=== PATIENT | female | born 1935 | race Caucasian/White ===

== ENCOUNTER → 2017-02-16 | Outpatient (CLI) | payer MEDICARE, BC ==
[2017-02-16 08:18] LABS: Anion Gap 13 mmol/L; Blood Urea Nitrogen 10 mg/dL (7-17); Calcium 9.6 mg/dL (8.4-10.2); Carbon Dioxide 22 mmol/L (22-30); Chloride 106 mmol/L (98-107); Cholesterol 218 mg/dL (<200); Glucose 100 mg/dL (74-99); HDL Cholesterol 71 mg/dL (40-60); Non-African American GFR(MDRD) >60 (>60 ml/min/1.73 sqM); Potassium 4.2 mmol/L (3.5-5.1); Sodium 141 mmol/L (137-145); Triglycerides 140 mg/dL (<150)
[2017-02-16 12:34] LABS: Hemoglobin A1C 4.6 % (4.2-6.1)
== END | disposition home or self-care (01) ==
LOC: LABWHC1 07:17
PROVIDERS: ATTEND Internal Medicine
DX: E11.9 Type 2 diabetes mellitus without complications (principal); E78.5 Hyperlipidemia, unspecified
CPT/HCPCS: 36415; 80048; 80061; 82043; 83036

== ENCOUNTER → 2017-11-24 | Outpatient (CLI) | payer MEDICARE, BC ==
[2017-11-24 08:08] LABS: Appearance,Urine Cloudy (Clear); Bacteria,Urine Many /hpf; Bilirubin,Urine Negative (Negative); Blood,Urine Negative (Negative); Color,Urine Yellow; Glucose,Urine (UA) Negative (Negative); Ketones,Urine Negative (Negative); Leukocyte Esterase,Urine Large (Negative); Mucus,Urine Rare /hpf; Nitrite,Urine Negative (Negative); PH, Urine 5.5 (5.0-8.0); Protein,Urine Negative (Negative); RBC,Urine 2 /hpf (0-5); Specific Gravity,Urine 1.011 (1.001-1.035); Squamous Epithelial Cell,Urine 4 /hpf (0-4); Urobilinogen,Urine <2.0 mg/dL (<2.0); WBC,Urine 112 /hpf (0-5)
[2017-11-24 08:33] LABS: Anion Gap 13 mmol/L; Blood Urea Nitrogen 11 mg/dL (7-17); Calcium 9.4 mg/dL (8.4-10.2); Carbon Dioxide 25 mmol/L (22-30); Chloride 104 mmol/L (98-107); Cholesterol 151 mg/dL (<200); Glucose 90 mg/dL (74-99); HDL Cholesterol 56 mg/dL (40-60); LDL Cholesterol,Calculated 67 mg/dL (0-99); Potassium 4.4 mmol/L (3.5-5.1); Sodium 142 mmol/L (137-145); Triglycerides 139 mg/dL (<150)
[2017-11-24 12:23] LABS: Hemoglobin A1C 4.5 % (4.0-6.0)
== END | disposition home or self-care (01) ==
LOC: LABWHC1 07:17
PROVIDERS: ATTEND Internal Medicine
DX: E78.5 Hyperlipidemia, unspecified (principal); E11.9 Type 2 diabetes mellitus without complications
CPT/HCPCS: 36415; 80048; 80061; 81001; 83036

== ENCOUNTER → 2018-07-20 | Outpatient (CLI) | payer MEDICARE, BC ==
[2018-07-20 16:47] LABS: HCT 37.4 % (34.0-46.0); MCH 28.8 pg (25.0-35.0); MCHC 32.1 g/dL (31.0-37.0); MCV 89.9 fL (80.0-100.0); Mean Platelet Volume 6.7; Platelet Count 213 k/uL (150-450); RBC 4.16 m/uL (3.80-5.40); RDW 14.4 % (11.5-15.5)
[2018-07-20 18:54] LABS: Erythrocyte Sedimentation Rate 44 mm/hr (0-20)
[2018-07-21 03:29] LABS: Rheumatoid Factor 27 IU/mL (0-15)
[2018-07-21 03:47] LABS: Albumin 4.5 g/dL (3.80-4.90); Albumin/Globulin Ratio 1.73 (1.20-2.10); Anion Gap 10.2 mmol/L (4.00-12.00); Calcium 9.9 mg/dL (8.7-10.3); Carbon Dioxide 23.8 mmol/L (21.6-31.8); Globulin 2.6 g/dL (2.1-3.7); Potassium 4.8 mmol/L (3.5-5.5); Total Bilirubin 1.1 mg/dL (0.3-1.2); Total Protein 7.1 g/dL (6.2-8.2); Uric Acid 4.4 mg/dL (2.9-7.7)
[2018-07-21 04:15] LABS: Cyclic Citrullinated Pep IgG NEGATIVE (NEGATIVE)
[2018-07-21 11:36] LABS: C Reactive Protein 1.8
== END | disposition home or self-care (01) ==
LOC: LABWHC1 15:59
PROVIDERS: ATTEND Internal Medicine
DX: E78.5 Hyperlipidemia, unspecified (principal); E11.9 Type 2 diabetes mellitus without complications; M25.541 Pain in joints of right hand
CPT/HCPCS: 36415; 80053; 83036; 84550; 85027; 85652; 86140; 86200; 86431

== ENCOUNTER → 2018-09-22 | Outpatient (CLI) | payer MEDICARE, BC ==
--- NOTE | 2018-09-22 08:20 | XR ---
EXAMINATION TYPE: XR wrist complete BILATERAL, XR hand complete bilateral DATE OF EXAM: 09/22/2018 CLINICAL HISTORY: Bilateral hand and wrist pain. TECHNIQUE: Frontal, lateral and oblique images of the bilateral hands and wrists are obtained. COMPARISON: None FINDINGS: There is no acute fracture/dislocation evident in either wrist. There is radiocarpal joint space loss seen bilaterally. Demineralization is present which is noted to lower radiographic sensit ivity. There is symmetric moderate to advanced narrowing narrowing at base of first metacarpal. Overl sreedhar vascular calcification is present bilaterally. Images of bilateral hands show mild to moderate narrowing throughout the bilateral phalanges involvin g PIP and DIP joints. There is relative sparing of the MCP joints. Mild/moderate diffuse soft tissue swelling is present. Demineralization is noted. IMPRESSION: As above.
== END | disposition home or self-care (01) ==
LOC: RADXRMAIN 07:14
PROVIDERS: ATTEND Physician Assistant Medical
DX: M25.842 Other specified joint disorders, left hand (principal); M25.841 Other specified joint disorders, right hand; M79.89 Other specified soft tissue disorders; M13.0 Polyarthritis, unspecified

== ENCOUNTER 2022-04-02 13:53 | Observation (INO) | payer MEDICARE, BC ==
[2022-04-02] MEDS ORDERED: DILTIAZEM DRIP BOLUS FROM BAG 1 MG SOLN IV ONE (14:39)
[2022-04-02] MEDS ORDERED: DILTIAZEM 125 MG in SODIUM CHLORIDE 0.9% 100 ML IV SCH ×3 (14:45→23:00)
[2022-04-02 14:57] LABS: Basophils % (A) 0 %; Eosinophils % (A) 1 %; HCT 35.5 % (34.0-46.0); HGB 11.7 gm/dL (11.4-16.0); Lymphocytes # (A) 0.9 k/uL (1.0-4.8); Lymphocytes % (A) 14 %; Monocytes # (A) 0.4 k/uL (0-1.0); Monocytes % (A) 5 %; Neutrophils % (A) 78 %; Platelet Count 175 k/uL (150-450); RDW 13.9 % (11.5-15.5); WBC 6.4 k/uL (3.8-10.6)
[2022-04-02 15:08] LABS: Partial Thromboplastin Time 26.5 sec (22.0-30.0); Prothrombin Time 10.7 sec (9.0-12.0)
--- NOTE | 2022-04-02 15:13 | XR ---
EXAMINATION TYPE: XR chest 2V DATE OF EXAM: 04/02/2022 COMPARISON: NONE HISTORY: Chest pain. TECHNIQUE: Frontal and lateral views of the chest are obtained. FINDINGS: There is mild chronic painful change without suspicious focal air space opacity, pleural e ffusion, or pneumothorax seen. The cardiac silhouette size is enlarged with atherosclerotic thoracic aorta. The osseous structures are demineralized. Cholecystectomy clips are noted on lateral view. IMPRESSION: Chronic changes and cardiomegaly without acute pulmonary process.
[2022-04-02 15:27] LABS: ALT 12 U/L (4-34); African American GFR (CKD) >90 (>60 ml/min/1.73 sqM); Albumin 4.3 g/dL (3.5-5.0); Anion Gap 8 mmol/L; Blood Urea Nitrogen 10 mg/dL (7-17); Calcium 8.9 mg/dL (8.4-10.2); Carbon Dioxide 24 mmol/L (22-30); Chloride 103 mmol/L (98-107); Glucose 102 mg/dL (74-99); Non-African American GFR(CKD) 81 (>60 ml/min/1.73 sqM); Sodium 135 mmol/L (137-145); Total Bilirubin 1.5 mg/dL (0.2-1.3); Total Protein 7.8 g/dL (6.3-8.2)
[2022-04-02 15:37] LABS: AST 27 U/L (14-36); Alkaline Phosphatase 72 U/L (38-126); Potassium 4.6 mmol/L (3.5-5.1)
[2022-04-02] MEDS ORDERED: NITROGLYCERIN SL TABS 0.4 MG TAB SUBLINGUAL PRN (15:57)
[2022-04-02] MEDS ORDERED: HEPARIN SODIUM 1,000 UN/ML (10ML VL) IV ONE (15:57)
--- NOTE | 2022-04-02 15:57 | ED ---
General Adult HPI - General Chief complaint: Recheck/Abnormal Lab/Rx Stated complaint: Abnormal EKG Time Seen by Provider: 04/02/22 14:15 Source: patient, family, RN notes reviewed Mode of arrival: ambulatory Limitations: no limitations - History of Present Illness Initial comments: 86-year-old female presents emergency Department from PCPs office with family for new onset atrial fibrillation. Patient went for routine checkup found to be in A. fib RVR. Patient has no history of atrial fibrillation. Patient has no specific complaints. She denies any chest pain shortness breath palpitations or nausea vomiting diarrhea constipation. Patient is very hard of hearing. Patient family members state that she is at her normal baseline. - Related Data Home Medications Medication Instructions Recorded Confirmed Aspirin 81 mg PO DAILY 04/21/14 04/21/14 Fish Oil/Dha/Epa [Fish Oil 1,200 1 each PO 04/21/14 04/21/14 mg Fish Oil] Gabapentin [Neurontin] 600 mg PO DAILY 04/21/14 04/21/14 Lovastatin [Mevacor] 20 mg PO HS 04/21/14 04/21/14 Multivitamins, Thera [Multivitamin] 1 each PO 04/21/14 04/21/14 Spironolactone [Aldactone] 25 mg PO DAILY 04/21/14 04/21/14 glipiZIDE [Glucotrol] 5 mg PO AC-BRKFST 04/21/14 04/21/14 Previous Rx's Medication Instructions Recorded Clopidogrel [Plavix] 75 mg PO DAILY #30 tab 04/24/14 amLODIPine BESYLATE [Norvasc] 5 mg PO DAILY #30 tab 04/24/14 Allergies Allergy/AdvReac Type Severity Reaction Status Date / Time codeine AdvReac Nausea & Verified 04/02/22 14:08 Vomiting Review of Systems ROS Statement: Those systems with pertinent positive or pertinent negative responses have been documented in the HPI. ROS Other: All systems not noted in ROS Statement are negative. 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 History of Any Multi-Drug Resistant Organisms: None Reported Past Surgical History: Cholecystectomy, Hysterectomy Additional Past Surgical History / Comment(s): cataract sx,colonoscopy, lumpectomy Past Anesthesia/Blood Transfusion Reactions: No Reported Reaction Past Psychological History: No Psychological Hx Reported Smoking Status: Never smoker Past Alcohol Use History: None Reported Past Drug Use History: None Reported General Exam Limitations: no limitations General appearance: alert, in no apparent distress Head exam: Present: atraumatic, normocephalic, normal inspection Eye exam: Present: normal appearance, PERRL, EOMI. Absent: scleral icterus, conjunctival injection, periorbital swelling ENT exam: Present: normal exam, normal oropharynx, mucous membranes moist Neck exam: Present: normal inspection, full ROM. Absent: tenderness, meningismus, lymphadenopathy Respiratory exam: Present: normal lung sounds bilaterally. Absent: respiratory distress, wheezes, rales, rhonchi, stridor Cardiovascular Exam: Present: tachycardia, irregular rhythm, normal heart sounds. Absent: regular rate, normal rhythm, systolic murmur, diastolic murmur, rubs, gallop, clicks GI/Abdominal exam: Present: soft, normal bowel sounds. Absent: distended, tenderness, guarding, rebound, rigid Course Vital Signs 04/02/22 04/02/22 14:06 15:21 Temperature 98.3 F Pulse Rate 108 H 94 Respiratory 18 16 Rate Blood Pressure 167/78 O2 Sat by Pulse 99 96 Oximetry EKG Findings - EKG Comments: EKG Findings:: EKG atrial fibrillation with a rate of 101 QRS 89 QT/QTC 323/381 Medical Decision Making - Medical Decision Making 86-year-old female presented for new-onset A. fib fibrillation. Patient is an R VR. Patient was started on Cardizem. Patient did have. Labs with no specific findings. Patient will be admitted for echocardiogram, cardiology evaluation. - Lab Data Result diagrams: 04/02/22 14:48 04/02/22 14:48 Lab Results 04/02/22 04/02/22 04/02/22 Range/Units 14:48 14:48 14:48 WBC 6.4 (3.8-10.6) k/uL RBC 3.90 (3.80-5.40) m/uL Hgb 11.7 (11.4-16.0) gm/dL Hct 35.5 (34.0-46.0) % MCV 91.0 (80.0-100.0) fL MCH 30.0 (25.0-35.0) pg MCHC 33.0 (31.0-37.0) g/dL RDW 13.9 (11.5-15.5) % Plt Count 175 (150-450) k/uL MPV 7.0 Neutrophils % 78 % Lymphocytes % 14 % Monocytes % 5 % Eosinophils % 1 % Basophils % 0 % Neutrophils # 5.0 (1.3-7.7) k/uL Lymphocytes # 0.9 L (1.0-4.8) k/uL Monocytes # 0.4 (0-1.0) k/uL Eosinophils # 0.0 (0-0.7) k/uL Basophils # 0.0 (0-0.2) k/uL PT 10.7 (9.0-12.0) sec INR 1.0 (<1.2) APTT 26.5 (22.0-30.0) sec Sodium 135 L (137-145) mmol/L Potassium 4.6 (3.5-5.1) mmol/L Chloride 103 (98-107) mmol/L Carbon Dioxide 24 (22-30) mmol/L Anion Gap 8 mmol/L BUN 10 (7-17) mg/dL Creatinine 0.66 (0.52-1.04) mg/dL Est GFR (CKD-EPI)AfAm >90 (>60 ml/min/1.73 sqM) Est GFR (CKD-EPI)NonAf 81 (>60 ml/min/1.73 sqM) Glucose 102 H (74-99) mg/dL Calcium 8.9 (8.4-10.2) mg/dL Magnesium 2.0 (1.6-2.3) mg/dL Total Bilirubin 1.5 H (0.2-1.3) mg/dL AST 27 (14-36) U/L ALT 12 (4-34) U/L Alkaline Phosphatase 72 (38-126) U/L Troponin I (0.000-0.034) ng/mL NT-Pro-B Natriuret Pep pg/mL Total Protein 7.8 (6.3-8.2) g/dL Albumin 4.3 (3.5-5.0) g/dL 04/02/22 04/02/22 Range/Units 14:48 14:48 WBC (3.8-10.6) k/uL RBC (3.80-5.40) m/uL Hgb (11.4-16.0) gm/dL Hct (34.0-46.0) % MCV (80.0-100.0) fL MCH (25.0-35.0) pg MCHC (31.0-37.0) g/dL RDW (11.5-15.5) % Plt Count (150-450) k/uL MPV Neutrophils % % Lymphocytes % % Monocytes % % Eosinophils % % Basophils % % Neutrophils # (1.3-7.7) k/uL Lymphocytes # (1.0-4.8) k/uL Monocytes # (0-1.0) k/uL Eosinophils # (0-0.7) k/uL Basophils # (0-0.2) k/uL PT (9.0-12.0) sec INR (<1.2) APTT (22.0-30.0) sec Sodium (137-145) mmol/L Potassium (3.5-5.1) mmol/L Chloride (98-107) mmol/L Carbon Dioxide (22-30) mmol/L Anion Gap mmol/L BUN (7-17) mg/dL Creatinine (0.52-1.04) mg/dL Est GFR (CKD-EPI)AfAm (>60 ml/min/1.73 sqM) Est GFR (CKD-EPI)NonAf (>60 ml/min/1.73 sqM) Glucose (74-99) mg/dL Calcium (8.4-10.2) mg/dL Magnesium (1.6-2.3) mg/dL Total Bilirubin (0.2-1.3) mg/dL AST (14-36) U/L ALT (4-34) U/L Alkaline Phosphatase (38-126) U/L Troponin I <0.012 (0.000-0.034) ng/mL NT-Pro-B Natriuret Pep 1150 pg/mL Total Protein (6.3-8.2) g/dL Albumin (3.5-5.0) g/dL Critical Care Time Critical Care Time: Yes Total Critical Care Time: 35 Disposition Clinical Impression: Atrial fibrillation with RVR, New onset atrial fibrillation Disposition: ADMITTED IP TO THIS [facility] Condition: Fair Referrals: Nirali Romero MD [Primary Care Provider] - 1-2 days
[2022-04-02] MEDS ORDERED: HEPARIN SOD,PORK IN 0.45% NACL 25,000 UNIT in 0.45% NACL 1 250ML.BAG IV SCH (16:15)
[2022-04-02] MEDS ORDERED: MELATONIN 3 MG TABLET PO PRN (16:56)
[2022-04-02] MEDS ORDERED: ONDANSETRON 4 MG/2 ML VIAL IVP PRN (16:56)
[2022-04-02] MEDS ORDERED: NALOXONE 0.4 MG/ML 1 ML VIAL IVP PRN (17:00)
[2022-04-02] MEDS ORDERED: bisacodyL 5 MG TABLET.DR PO PRN (17:07)
[2022-04-02] MEDS ORDERED: ACETAMINOPHEN TAB 325 MG TAB PO PRN (17:07)
--- NOTE | 2022-04-02 17:07 | P.HPIM ---
History of Present Illness H&P Date: 04/02/22 Patient is an 86 yo CF with a Prior CVA, HTN, and DM 2 with peripheral neuropathy who was sent in by Dr. Nick shabazz being found in A fib with RVR at the office. On arrival to the ER she was foudn to have HR between 110-120. She was given cardizme 5 mg IVP followed by a cardizem gtt and achieve adaquate rate control. Labatoray analysis was unremarkable ither than bili of 1.5, Chest x-ray showed no acute process. She was placed in Observation for HR control. Patient seen and examined at bedside in the emergency department with family present. She was at her routine yearly evaluation with her primary care physician when he noticed she was in A. fib with RVR. Patient denies any palpitations, chest pain, shortness of breath, lightheadedness, dizziness. She does report that she has been more tired than normal. She denies any difficulty with exertion. She is independent and does most of her ADLs, her daughters do help her with thorough cleaning needed on the floor but she is independent other than this. She did have one fall back in November and hast used a walker since that time. Pertinent positives and negatives as discussed in HPI, a complete review of systems was performed and all other systems are negative. Vital signs reviewed General: nontoxic, no distress, appears at stated age Derm: warm, dry Head: atraumatic, normocephalic, symmetric Eyes: EOMI, no lid lag, anicteric sclera, pupils equal round reactive to light ENT: Nose and ears atraumatic, no thrush, no pharyngeal erythema Neck: No thyromegaly, no cervical lymphadenopathy, trachea midline, supple Mouth: no lip lesion, mucus membranes moist Cardiovascular: S1S2 irreg, positive posterior tibial pulse bilateral, trace edema right ankle, capillary refill less than 2 seconds Lungs: clear to auscultation bilateral, no rhonchi, no rales, no wheeze, no accessory muscle use Abdominal: soft, nontender to palpation, no guarding, no appreciable organomegaly, normal bowel sounds Ext: no gross muscle atrophy, muscle strength muscle strength 5 out of 5 in all 4 extremities, no contractures Neuro: CN II-XII grossly intact, light touch intact all 4 extremities, finger to nose within normal limits, Psych: Alert, oriented, appropriate affect Assessment/Plan: Atrial fibrilliation with rapid ventricular response, newly discovered Hx Moderate Pulm HTN - Cardizem - tele - transition off Cardizem - check echo - consult cardio - check TSH DM 2 wiht neuropathy - hold oral medications -SSI - follow BS HTN - Hold norvasc - follow BP Hx CVA - ASA, Plavix HX vasculitis The patient is admitted with an anticipated less than 2 midnight stay for evalua tion of Atrial fibrilliation with RVR Surrogate decision-maker: DaughterKenan Laguna CODE STATUS: DNR, okay wih elective cardioversion if needed DVT prophylaxis: on heparin gtt Discussed with: Pt, ED provider, daugther Anticipated discharge date: in AM Anticipated discharge place: home A total of 60 minutes was spent on the care of this complex patient more than 50% of the time was spent in counseling and care coordination. 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, neuropathy History of Any Multi-Drug Resistant Organisms: None Reported Past Surgical History: Cholecystectomy, Hysterectomy Additional Past Surgical History / Comment(s): cataract sx,colonoscopy, lumpectomy Past Anesthesia/Blood Transfusion Reactions: No Reported Reaction Past Psychological History: No Psychological Hx Reported Smoking Status: Never smoker Past Alcohol Use History: None Reported Past Drug Use History: None Reported - Past Family History Father Family Medical History: Cancer Medications and Allergies Home Medications Medication Instructions Recorded Confirmed Type Lovastatin [Mevacor] 20 mg PO DAILY 04/21/14 04/02/22 History Spironolactone [Aldactone] 25 mg PO Q48H 04/21/14 04/02/22 History Clopidogrel [Plavix] 75 mg PO DAILY #30 tab 04/24/14 04/02/22 Rx Gabapentin [Neurontin] 600 mg PO BID 04/02/22 04/02/22 History amLODIPine BESYLATE/BENAZEPRIL 1 cap PO DAILY 04/02/22 04/02/22 History [Lotrel 2.5-10 MG] metFORMIN HCL 500 mg PO DAILY 04/02/22 04/02/22 History Allergies Allergy/AdvReac Type Severity Reaction Status Date / Time codeine AdvReac Nausea & Verified 04/02/22 16:33 Vomiting Physical Exam Osteopathic Statement: *. No significant issues noted on an osteopathic structural exam other than those noted in the History and Physical/Consult. Vitals: Vital Signs Temp Pulse Resp BP Pulse Ox 04/02/22 16:25 96 16 143/66 99 04/02/22 15:21 94 16 96 04/02/22 14:06 98.3 F 108 H 18 167/78 99 Intake and Output 04/02/22 04/02/22 04/02/22 06:59 14:59 22:59 Other: Weight 58.06 kg Results CBC & Chem 7: 04/02/22 14:48 04/02/22 14:48 Labs: Abnormal Lab Results - Last 24 Hours (Table) 04/02/22 04/02/22 Range/Units 14:48 14:48 Lymphocytes # 0.9 L (1.0-4.8) k/uL Sodium 135 L (137-145) mmol/L Glucose 102 H (74-99) mg/dL Total Bilirubin 1.5 H (0.2-1.3) mg/dL
[2022-04-02 20:26] LABS: Glucose,Whole Blood 96 mg/dL (70-110)
[2022-04-02] MEDS: GABAPENTIN 300 MG CAP PO SCH (22:52)
[2022-04-03 05:42] VITALS: RESP 18
[2022-04-03 05:55] LABS: Glucose,Whole Blood 89 mg/dL (70-110)
[2022-04-03] MEDS ORDERED: METOPROLOL TARTRATE 25 MG TAB PO SCH (09:00)
[2022-04-03] MEDS: GABAPENTIN 300 MG CAP PO SCH (10:24)
[2022-04-03] MEDS ORDERED: CLOPIDOGREL 75 MG TAB PO SCH (10:45)
[2022-04-03] MEDS ORDERED: ATORVASTATIN 10 MG TAB PO SCH (10:45)
[2022-04-03 11:41] LABS: Glucose,Whole Blood 117 mg/dL (70-110)
--- NOTE | 2022-04-03 12:11 | P.CRDCN ---
History of Present Illness History of present illness: HISTORY OF PRESENTING ILLNESS This is a pleasant 86-year-old female past medical history significant for CVA around 10 years ago per family, hypertension, dyslipidemia, type 2 diabetes. 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 We've been asked to see in consultation for new onset atrial fibrillation. Patient presents for her PCP office Dr. Romero yesterday for regular 6 month wellness visit. She had an EKG performed and there was concern for Afib and patient was sent to the ER. She did not have any complaints. Denies any symptoms of chest pain, shortness of breath, lightheadedness, dizziness, palpitations, syncope or near syncope. She denies any nausea, vomiting, abdominal pain, fever, cough, chills. EKG in the office faxed over and reviewed patient in sinus tachycardia, with PACs. No atrial fibrillation noted. EKGs performed here with same findings. Telemetry reviewed as well and patient in sinus mechanism HR 80-90s, PACs and occcasional PVC noted. No atrial fibrillation. Patient does not have a history of atrial fibrillation, CAD, [place], or heart failure. She is a non-smoker. DIAGNOSTICS Chest xray no acute cardiopulmonary process Laboratory reviewed, CBC unremarkable, troponin negative 3, proBNP 1150, TSH within normal limits, sodium 135, potassium 4.6, BUN 10, serum principal 0.6, magnesium 2.0 Current home cardiac medications include amlodipine/benazepril 2. 510 milligrams daily, spironolactone 25 mg Q48hr, lovastatin 20 mg daily, Plavix 75 mg daily REVIEW OF SYSTEMS At the time of my exam: CONSTITUTIONAL: Denies fever or chills. CARDIOVASCULAR: Denies chest pain, shortness of breath, orthopnea, PND or palpitations. RESPIRATORY: Denies cough. GASTROINTESTINAL: Denies abdominal pain, diarrhea, constipation, nausea or vomiting. MUSCULOSKELETAL: Denies myalgias. NEUROLOGIC: Denies numbness, tingling, headacbe or weakness. ENDOCRINE: Denies fatigue, weight change, polydipsia or polyurina. GENITOURINARY: Denies burning, hematuria or urgency with micturation. HEMATOLOGIC: Denies history of anemia or bleeding. PHYSICAL EXAMINATION Blood pressure 117/60, heart rate 80, afebrile, saturations 95% room air CONSTITUTIONAL: No apparent distress. HEENT: Head is normocephalic. Pupils are equal, round. Sclerae anicteric. Mucous membranes of the mouth are moist. No JVD. No carotid bruit. CHEST EXAMINATION: Lungs are clear to auscultation. No chest wall tenderness is noted on palpation or with deep breathing. HEART EXAMINATION: Regular rate and rhythm. S1, S2 heard. Systolic murmur heart at the base ABDOMEN: Soft, nontender. Positive bowel sounds. EXTREMITIES: 2+ peripheral pulses, no lower extremity edema and no calf tenderness. NEUROLOGIC EXAMINATION: Patient is awake, alert and oriented x3. ASSESSMENT Sinus rhythm with premature atrial complexes, atrial fibrillation has been ruled out CVA around 10 years ago per family Hypertension Dyslipidemia Type 2 diabetes. PLAN Stop Heparin drip 2D echocardiogram ordered, preliminary read with EF 50-55% with mild aortic stenosis. From a cardiology perspective, patient is stable, no further changes at this time. Continue home cardiac medications Nurse practitioner note has been reviewed by physician. Signing provider agrees with the documented findings, assessment, and plan of care. 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, neuropathy History of Any Multi-Drug Resistant Organisms: None Reported Past Surgical History: Cholecystectomy, Hysterectomy Additional Past Surgical History / Comment(s): cataract sx,colonoscopy, lumpectomy Past Anesthesia/Blood Transfusion Reactions: No Reported Reaction Past Psychological History: No Psychological Hx Reported Smoking Status: Never smoker Past Alcohol Use History: None Reported Past Drug Use History: None Reported - Past Family History Father Family Medical History: Cancer Medications and Allergies Home Medications Medication Instructions Recorded Confirmed Type Lovastatin [Mevacor] 20 mg PO DAILY 04/21/14 04/02/22 History Spironolactone [Aldactone] 25 mg PO Q48H 04/21/14 04/02/22 History Clopidogrel [Plavix] 75 mg PO DAILY #30 tab 04/24/14 04/02/22 Rx Gabapentin [Neurontin] 600 mg PO BID 04/02/22 04/02/22 History amLODIPine BESYLATE/BENAZEPRIL 1 cap PO DAILY 04/02/22 04/02/22 History [Lotrel 2.5-10 MG] metFORMIN HCL 500 mg PO DAILY 04/02/22 04/02/22 History Allergies Allergy/AdvReac Type Severity Reaction Status Date / Time codeine AdvReac Nausea & Verified 04/02/22 16:33 Vomiting Physical Exam Vitals: Vital Signs Temp Pulse Pulse Resp BP BP Pulse Ox 04/03/22 03:55 97.8 F 90 18 107/58 95 04/02/22 23:05 95 17 129/72 97 04/02/22 22:00 138/72 04/02/22 19:48 98.3 F 102 H 18 143/83 98 04/02/22 18:32 82 16 145/92 99 04/02/22 16:25 96 16 143/66 99 04/02/22 15:21 94 16 96 04/02/22 14:06 98.3 F 108 H 18 167/78 99 Intake and Output 04/02/22 04/03/22 04/03/22 22:59 06:59 14:59 Intake Total 46.911 Balance 46.911 Intake: Intake, IV Titration 46.911 Amount Heparin Sod,Pork in 0.45% 46.911 NaCl 25,000 unit In 0.45 % NaCl 1 250ml.bag @ 12 UNITS/KG/HR 6.967 mls/hr IV .Q24H [facility] Rx#: [id number] Other: Voiding Method Toilet Toilet # Voids 1 Weight 58.06 kg Results 04/02/22 14:48 04/02/22 14:48 Cardiac Enzymes 04/02/22 04/02/22 04/02/22 Range/Units 14:48 14:48 17:27 AST 27 (14-36) U/L Troponin I <0.012 <0.012 (0.000-0.034) ng/mL 04/02/22 Range/Units 20:10 AST (14-36) U/L Troponin I <0.012 (0.000-0.034) ng/mL Coagulation 04/02/22 04/02/22 04/03/22 Range/Units 14:48 22:04 07:11 PT 10.7 (9.0-12.0) sec APTT 26.5 39.4 H 48.3 H (22.0-30.0) sec CBC 04/02/22 Range/Units 14:48 WBC 6.4 (3.8-10.6) k/uL RBC 3.90 (3.80-5.40) m/uL Hgb 11.7 (11.4-16.0) gm/dL Hct 35.5 (34.0-46.0) % Plt Count 175 (150-450) k/uL Comprehensive Metabolic Panel 04/02/22 Range/Units 14:48 Sodium 135 L (137-145) mmol/L Potassium 4.6 (3.5-5.1) mmol/L Chloride 103 (98-107) mmol/L Carbon Dioxide 24 (22-30) mmol/L BUN 10 (7-17) mg/dL Creatinine 0.66 (0.52-1.04) mg/dL Glucose 102 H (74-99) mg/dL Calcium 8.9 (8.4-10.2) mg/dL AST 27 (14-36) U/L ALT 12 (4-34) U/L Alkaline Phosphatase 72 (38-126) U/L Total Protein 7.8 (6.3-8.2) g/dL Albumin 4.3 (3.5-5.0) g/dL Current Medications Generic Name Dose Route Start Last Admin Trade Name Freq PRN Reason Stop Dose Admin Acetaminophen 650 mg 04/02/22 17:07 Acetaminophen Tab 325 Mg Tab PO Q6HR PRN Fever and/ or Pain Bisacodyl 5 mg 04/02/22 17:07 Bisacodyl 5 Mg Tablet.Dr PO DAILY PRN Constipation Gabapentin 600 mg 04/02/22 22:30 04/02/22 22:52 Gabapentin 300 Mg Cap PO 600 mg BID [facility]A Administration Heparin Sodium/Sodium Chloride 250 mls @ 6.967 mls/hr 04/02/22 16:15 04/02/22 23:00 25,000 unit/ Sodium Chloride IV 14 units/kg/hr .Q24H [facility] 8.128 mls/hr Titration Protocol 12 UNITS/KG/HR Diltiazem HCl 125 mg/ Sodium 125 mls @ 5 mls/hr 04/02/22 23:00 04/02/22 23:39 Chloride IV 5 mg/hr .Q24H [facility]A 5 mls/hr Administration 5 MG/HR Melatonin 3 mg 04/02/22 16:56 Melatonin 3 Mg Tablet PO HS PRN Insomnia Metoprolol Tartrate 25 mg 04/03/22 09:00 Metoprolol Tartrate 25 Mg Tab PO BID GENOVEVA Naloxone HCl 0.2 mg 07/06/22 17:00 Naloxone 0.4 Mg/Ml 1 Ml Vial IVP Q2M PRN Opioid Reversal Nitroglycerin 0.4 mg 04/02/22 15:57 Nitroglycerin Sl Tabs 0.4 Mg Tab SUBLINGUAL Q5M PRN Chest Pain Ondansetron HCl 4 mg 04/02/22 16:56 Ondansetron 4 Mg/2 Ml Vial IVP Q8HR PRN Nausea And Vomiting Intake and Output 04/02/22 04/03/22 04/03/22 22:59 06:59 14:59 Intake Total 46.911 Balance 46.911 Intake: Intake, IV Titration 46.911 Amount Heparin Sod,Pork in 0.45% 46.911 NaCl 25,000 unit In 0.45 % NaCl 1 250ml.bag @ 12 UNITS/KG/HR 6.967 mls/hr IV .Q24H [facility] Rx#: [id number] Other: Voiding Method Toilet Toilet # Voids 1 Weight 58.06 kg 04/02/22 14:48 04/02/22 14:48
--- NOTE | 2022-04-03 15:12 | P.DS ---
Providers Date of admission: 04/02/22 16:00 Expected date of discharge: 04/03/22 Attending physician: Coco Villegas DO Consults: 04/02/22 15:57 Consult Physician Urgent Consulting Provider: Bairon Mayes Consult Reason/Comments: new onset afib Do you want consulting provider notified?: Yes Primary care physician: Nirali Romero MD Hospital Course: Discharge Diagnosis: Sinus rhythm with PAC, A. fib ruled out Hypertension Dyslipidemia Diabetes mellitus type 2 History of prior CVA Hospital Course: Patient is an 86 yo CF with a Prior CVA, HTN, and DM 2 with peripheral neuropathy who was sent in by Dr. Romero after being found in A fib with RVR at the office. On arrival to the ER she was foudn to have HR between 110-120. She was given cardizme 5 mg IVP followed by a cardizem gtt and achieve adaquate rate control. She was started on heparin drip. Labatoray analysis was unremarkable other than bili of 1.5, Chest x-ray showed no acute process. She was placed in Observation for HR control. She was seen by cardiology and was determined she was in sinus rhythm with frequent premature atrial contractions. She continued to do well. Her heparin drip and Cardizem drip was discontinued. She had an echocardiogram which showed a preserved ejection fraction of 50-55% and mild aortic stenosis on preliminary report. Final report pending at time of discharge. She was discharged home without any changes in medications. Follow-up: Dr. Romero in 1-2 days, Dr. Goodrich in 1-2 weeks. Patient seen and examined at bedside. Denies any complaints currently. No chest pain, palpitations, or shortness of breath. Vital signs reviewed and stable. General: nontoxic, no distress, appears at stated age Derm: warm, dry Head: atraumatic, normocephalic, symmetric Eyes: EOMI, no lid lag, anicteric sclera Mouth: no lip lesion, mucus membranes moist Cardiovascular: S1S2 reg positive posterior tibial pulse bilateral, Lungs: CTA bilateral, no rhonchi, no rales , no accessory muscle use Abdominal: soft, nontender to palpation, no guarding, no appreciable organomegaly Ext: no gross muscle atrophy, trace edema, no contractures Neuro: CN II-XI grossly intact, no focal neuro deficits Psych: Alert, oriented, appropriate affect A total of 22 minutes of time were spent preparing this complex discharge summary. Patient was discharged on 04/03/22. Patient Condition at Discharge: Fair Plan - Discharge Summary Discharge Rx Participant: No New Discharge Prescriptions: Continue Lovastatin [Mevacor] 20 mg PO DAILY Spironolactone [Aldactone] 25 mg PO Q48H Clopidogrel [Plavix] 75 mg PO DAILY #30 tab Gabapentin [Neurontin] 600 mg PO BID metFORMIN HCL 500 mg PO DAILY amLODIPine BESYLATE/BENAZEPRIL [Lotrel 2.5-10 MG] 1 cap PO DAILY Discharge Medication List Lovastatin [Mevacor] 20 mg PO DAILY 04/21/14 [History] Spironolactone [Aldactone] 25 mg PO Q48H 04/21/14 [History] Clopidogrel [Plavix] 75 mg PO DAILY #30 tab 04/24/14 [Rx] Gabapentin [Neurontin] 600 mg PO BID 04/02/22 [History] amLODIPine BESYLATE/BENAZEPRIL [Lotrel 2.5-10 MG] 1 cap PO DAILY 04/02/22 [History] metFORMIN HCL 500 mg PO DAILY 04/02/22 [History] Follow up Appointment(s)/Referral(s): Nirali Romero MD [Primary Care Provider] - 1-2 days Alex Goodrich DO [STAFF PHYSICIAN] - 1 Week Activity/Diet/Wound Care/Special Instructions: Activity: as tolerated Diet: heart healthy Special Instructions: Monitor pulse every day to every other day and make a list to bring to your appointment with Dr. Goodrich/Nick Discharge Disposition: HOME SELF-CARE
[2022-04-03 15:58] VITALS: BP 106/58; PULSE 89; TEMP 97.6
--- NOTE | 2022-04-04 12:39 | CA ---
Transthoracic Echo Report Name: Ivory Bobby Age: 86 Gender: F : 1935 Exam Date: 04/03/2022 09:07 Exam Location: [facility] Ht (in): 60 Wt (lb): 128 Ordering Physician: Jimbo Lopez Attending/Referring Phys: [id number], John [employer] Assistant Cherry Kam RDCS Procedure CPT: Indications: new-onset atrial fibrillation Cardiac Hx: Technical Quality: Contrast 1: Total Dose (mL): Contrast 2: Total Dose (mL): MEASUREMENTS (Male / Female) Normal Values 2D ECHO LV Diastolic Diameter PLAX 4.3 cm 4.2 - 5.9 / 3.9 - 5.3 cm LV Systolic Diameter PLAX 2.3 cm IVS Diastolic Thickness 1.3 cm 0.6 - 1.0 / 0.6 - 0.9 cm LVPW Diastolic Thickness 1.4 cm 0.6 - 1.0 / 0.6 - 0.9 cm LV Relative Wall Thickness 0.6 RV Internal Dim ED PLAX 2.8 cm LA Volume 88.2 cm??? 18 - 58 / 22 - 52 cm??? M-MODE Aortic Root Diameter MM 2.6 cm LA Systolic Diameter MM 4.4 cm LA Ao Ratio MM 1.7 AV Cusp Separation MM 1.1 cm DOPPLER AV Peak Velocity 277.2 cm/s AV Peak Gradient 30.7 mmHg AV Mean Velocity 199.6 cm/s AV Mean Gradient 17.7 mmHg AV Velocity Time Integral 79.7 cm LVOT Peak Velocity 100.5 cm/s LVOT Peak Gradient 4.0 mmHg MV Peak Velocity 137.9 cm/s MV Peak Gradient 7.6 mmHg MV Mean Velocity 86.7 cm/s MV Mean Gradient 3.2 mmHg MV Velocity Time Integral 25.7 cm MV Area PHT 1.8 cm??? Mitral E Point Velocity 82.8 cm/s Mitral A Point Velocity 122.2 cm/s Mitral E to A Ratio 0.7 MV Deceleration Time 378.3 ms TR Peak Velocity 273.5 cm/s TR Peak Gradient 29.9 mmHg Right Ventricular Systolic Press 34.3 mmHg FINDINGS Left Ventricle Mildly increased left ventricular wall thickness. Normal left ventricular systolic function with no obvious regional wall motion abnormalities. Left ventricular ejection fraction is estimated at 55 %. Abnormal left ventricular diastolic filling pattern. Right Ventricle Normal right ventricular size and function. Right Atrium Normal right atrial size. Left Atrium Severely increased left atrial volume. No evidence for an atrial septal defect. Mitral Valve Moderate mitral annular calcification. Moderate mitral regurgitation. Mild-to- moderate mitral stenosis. Aortic Valve Mild aortic stenosis with a peak gradient of 31 mmHg and a mean gradient of 18 mmHg. No aortic regurgitation. Diffuse thickening of the aortic valve cusps with reduced excursion. Tricuspid Valve Structurally normal tricuspid valve. Mild tricuspid regurgitation. Pulmonic Valve Trace pulmonic regurgitation. Pericardium No pericardial effusion. Aorta Normal size aortic root and proximal ascending aorta. CONCLUSIONS Normal left ventricular dimension and systolic function Moderate aortic stenosis Moderate mitral regurgitation Previewed by: Dr. Bairon Mayes MD (Electronically Signed) Final Date: 04 April 2022 12:38
== END 2022-04-03 16:20 | disposition home or self-care (01) ==
LOC: EC 13:53 → INTOOBSV 16:00 → 3SCARD 16:00
PROVIDERS: ADMIT Internal Medicine; ATTEND Internal Medicine
DX: I49.1 Atrial premature depolarization (principal); I10 Essential (primary) hypertension; E78.5 Hyperlipidemia, unspecified; E11.42 Type 2 diabetes mellitus with diabetic polyneuropathy; G62.9 Polyneuropathy, unspecified; I49.3 Ventricular premature depolarization; R00.0 Tachycardia, unspecified; H91.90 Unspecified hearing loss, unspecified ear; M31.9 Necrotizing vasculopathy, unspecified; I27.20 Pulmonary hypertension, unspecified; I08.3 Combined rheumatic disorders of mitral, aortic and tricuspid valves; Z86.73 Personal history of transient ischemic attack (TIA), and cerebral infarction without residual deficits; Z90.49 Acquired absence of other specified parts of digestive tract; Z90.710 Acquired absence of both cervix and uterus; Z79.82 Long term (current) use of aspirin; Z79.899 Other long term (current) drug therapy; Z79.84 Long term (current) use of oral hypoglycemic drugs; Z79.02 Long term (current) use of antithrombotics/antiplatelets; Z88.5 Allergy status to narcotic agent; Z91.81 History of falling; Z66 Do not resuscitate; Z71.9 Counseling, unspecified; Z80.9 Family history of malignant neoplasm, unspecified
CPT/HCPCS: 96366 ×3; 96368; 96376; 96365; 99291; 36415; 93005; 93306; 83880; 80053; 84443; 83735; 84484; 85025; 85610; 85730 ×2; 71046; G0378; J1644 ×2